=== PATIENT | female | born 1940 | race Caucasian/White ===

== ENCOUNTER → 2018-03-23 08:54 | Outpatient (CLI) | payer MEDICARE, OTHER, SELFPAY ==
--- NOTE | 2018-03-23 | DI.RAD.S_ITS ---
PROCEDURE: FL BARIUM SWALLOW W SPEECH INDICATIONS: DYSPHAGIA TECHNIQUE: Examination was conducted in conjunction with speech pathology per standard protocol. In the lateral projection, filming was performed of the patient swallowing. AP projection filming may also be performed with patient swallowing. COMPARISON: None. FINDINGS: Cervical disc degeneration is present. 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 Function: The oral preparatory phase appears normal, with proper containment. The subsequent oral propulsive phase, pharyngeal phase, and esophageal phase of swallowing also appear normal with all proffered substances. No laryngotracheal penetration or aspiration. No pathologic vallecular pooling. Morphology: No cricopharyngeal bar is identified. No cervical esophageal webs. No Zenker's diverticulum. No strictures. IMPRESSION: No aspiration. Dictated by: Merrill Bennett M.D. on 03/23/2018 at 11:35 Approved by: Merrill Bennett M.D. on 03/23/2018 at 11:36
--- NOTE | 2018-03-23 13:44 | ST.SWALLOW ---
Care Team Visit Care Team Role Provider Type Darrin Estevez MD Primary Care Provider Physician Specialty: Family Practice Address: [address], [place], [address] Email: Mychal Ku MD Attending Provider Physician Specialty: Ear, Nose, Throat Address: [address] [place] [address] [place], [address] Email: Modified Barium Swallow Study [facility] Modified Barium Swallow Study Start: 03/23/18 12:18 Freq: Status: Active Protocol: Document 03/23/18 13:33 MRM (Rec: 03/23/18 13:43 MRM [id number]) Modified Barium Swallow Study Total Time Visit Start Time 09:30 Visit Stop Time 10:00 Total Visit Minutes [address] Ku Reason for Referral Cough, globus sensation Setting Setting Outpatient Care Patient Information Identification Type Name Other Patient History Patient is a 77-year-old female referred by Dr Ku for an outpatient MBS secondary to cough and globus sensation. She has no recent history of neurological change , pneumonia or reduced appetite. She is able to eat and drink without restriction, but she did state that she has occasional difficulty swallowing bread and drinking consecutive sips of water. She stated that she has had these symptoms for years and was unable to recall the onset of symptoms. She reported that 30 years ago, she had a growth on her thyroid removed, which was benign. No other laryngeal /pharyngeal impairment to report. No history of speech therapy. No swallow study completed in the past. Subjective Observations Patient arrived on time for her MBS today with no family present. Able to ambulate independently and stand for AP view without difficulty. Patient Positioning Position View Lat-A/P Imaging Lateral View Textures Administered Trials Presented Thin Liquid via Cup Dysphagia Blenderized Textures Dysphagia Advanced Textures Regular Textures Oral Phase Source: MBSIMP (TM) (C) Bolus Specific Scoring Grid Lip Closure No Impairment (WNL) Tongue Control During Bolus Hold No Impairment (WNL) Bolus Prep/Mastication No Impairment (WNL) Bolus Transport/Lingual Motion No Impairment (WNL) A/P Lingual Propulsion Delay No Oral Residue No Impairment (WNL) Residue Clearing No Impairment (WNL) Nasal Regurgitation No Additional Oral Phase Observations No oral impairment Pharyngeal Phase Source: MBSIMP (TM) (C) Bolus Specific Scoring Grid Delayed Initiation of Pharyngeal Swallow No Soft Palate Elevation No Impairment (WNL) Tongue Base Strength/Range of Motion No Impairment (WNL) Residue Along the Tongue Base Yes: Trace amount; cleared with double swallow Clearance of Residue Along Tongue Base WFL Laryngeal Elevation No Impairment (WNL) Anterior Hyoid Movement No Impairment (WNL) Epiglottic Range of Motion No Impairment (WNL) Vallecular Residue Yes: Trace amount; cleared with double swallow Clearance of Vallecular Residue WFL Laryngeal Vestibular Closure No Impairment (WNL) Pharyngeal Stripping Wave WFL Pharyngeal Contraction WFL Posterior Pharyngeal Wall Residue No Clearance of Posterior Pharyngeal Wall WFL Residue Upper Esophageal Sphincter Opening WFL Residue in the Pyriform Sinuses Yes: Trace amount; cleared with double swallow Esophageal Clearance Upright Position No Impairment (WNL) Pharyngoesophageal Backflow Observed No Additional Pharyngeal Phase Observations No pharyngeal dysphagia. Radiologist noted presence of degenerative disk disease with subsequent osteopytes. Please see his report for details. Pharyngeal phase normal. A/P View Textures Administered Trials Presented Thin Liquid via Cup A/P View Observations Pharyngeal Contraction No Impairment (WNL) Vocal Fold Function Good Esophageal Function No Impairment (WNL) Esophageal Clearance Upright Position No Impairment (WNL) Additional Observations No impairment observed in AP view Esophageal Observations Esophageal Function No significant esophageal findings. Please see Radiologist's report for more detials. Clinical Impressions Dysphagia Type No dysphagia Findings Patient presents with a functional swallow. No oropharyngeal impairment. No penetration or aspiration observed. Patient able to tolerate thin liquids, puree textures, soft fruit and a jamin cracker without difficulty. No significant residue observed after any textures. RECOMMEND: No diet change recommended at this time. Discussed GERD precautions and recommended initiation of GERD diet to reduce acidity. However, patient able to tolerate single and consecutive sips of thin liquids without penetration or aspiration. No residue observed. Able to also tolerate regular textures without difficulty. Recommend alternate liquids/solids, hydrate frequently, avoid late night eating, slow rate of intake, sit upright during meals, sleep with elevation from waist. Recommend GI consult for further assessment of GERD. At this time, no further [facility] services warranted. Please reconsult if patient experiences worsening symptoms . Rehabilitation Potential Excellent Patient Appropriate for Therapy No Recommendations Diet Liquids Order Thin Diet Order Regular Medication Recommendation As Tolerated Aspiration Precautions Recommended Precautions Upright at 90 Degrees Alternate Liquids/Solids Frequent Rest Periods Small Bites/Sips Double Swallow Treatment Plan Recommended Referrals GI Consult Placement Recommendation After Discharge Home P[facility] Oral Motor Exam Start: 03/23/18 12:18 Freq: Status: Active Protocol: Document 03/23/18 13:33 MRM (Rec: 03/23/18 13:43 MRM [id number]) Oral Motor Examination Face Facial Symmetry Symmetrical Facial Movement Controlled Mouth Pucker Lips Normal Smile Normal Puff Cheeks Normal Tongue Size Normal Tongue Movement Protrusion/Retraction Strength WNL Protrusion/Retraction Range of Movement Normal Protrusion/Retraction Coordination WNL Elevation/Depression Strength WNL Elevation/Despression Range of Movement Normal Elevation/Depression Coordination WNL Lateralization Strength WNL Lateralization Range of Movement Normal Lateralization Coordination WNL Palate Soft Palate Description Normal Hard Palate Description Normal Gag Reflex Response Normal Velopharyngeal Movement Normal Hyolaryngeal Movement Hyolaryngeal Movement Normal Elevation Normal Excursion Volitional Cough/Swallow Comments Productive
== END ==
PROVIDERS: PCP Family Medicine; Visit Provider Otolaryngology
DX: R13.10 Dysphagia, unspecified (principal)
CPT/HCPCS: 74230; 92611

== ENCOUNTER → 2020-07-09 12:42 | Outpatient (CLI) | payer MEDICARE, OTHER, SELFPAY ==
--- NOTE | 2020-07-09 12:47 | DI.RAD.S_ITS ---
PROCEDURE: XR SHOULDER LT MIN 2V INDICATIONS: LEFT SHOULDER PAIN TECHNIQUE: 3 views of the shoulder were acquired. COMPARISON: None. FINDINGS: Bones: Impacted and slightly comminuted fracture involving surgical neck of left proximal humerus is seen with superior and lateral migration of proximal humeral shaft in relation to humeral head. No suspicious bony lesions. 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 Visualized ribs appear intact. Soft tissues: No suspicious soft tissue calcifications. IMPRESSION: Comminuted and impacted proximal humeral shaft/surgical neck fracture as above. Dictated by: Salomón Capone M.D. on 07/09/2020 at 14:15 Approved by: Salomón Capone M.D. on 07/09/2020 at 14:17
== END ==
PROVIDERS: PCP Family Medicine; Referring Provider Family Medicine; Visit Provider Family Medicine
DX: S42.212A Unspecified displaced fracture of surgical neck of left humerus, initial encounter for closed fracture (principal); S40.022A Contusion of left upper arm, initial encounter
CPT/HCPCS: 73030

== ENCOUNTER → 2024-10-23 09:04 | Outpatient (CLI) | payer MEDICARE, OTHER, SELFPAY ==
--- NOTE | 2024-10-23 09:08 | DI.RAD.S_ITS ---
PROCEDURE: XR THORACIC SPINE 2V INDICATIONS: Pain in thoracic spine TECHNIQUE: Two views of the thoracic spine were acquired. COMPARISON: None. FINDINGS: Thoracic spine curvature and alignment: Mild dextroscoliosis appreciated.. Bones: Minimal chronic wedging all thoracic vertebral bodies appreciated Disc spaces: Severe degenerative disc disease is seen throughout each thoracic level. Soft tissues: No soft tissue swelling, calcification or mass. IMPRESSION: Severe degeneration. Minimal chronic wedging all thoracic vertebral bodies may represent chronic Scheuermann's disease related disc degeneration and/or osteoporosis. Consider DEXA scanning if not recently performed Dictated by: Ray Hamilton M.D. on 10/25/2024 at 12:06 Approved by: Ray Hamilton M.D. on 10/25/2024 at 12:08
== END ==
PROVIDERS: PCP Family Medicine; Referring Provider Family Medicine; Visit Provider Family Medicine
DX: M51.34 Other intervertebral disc degeneration, thoracic region (principal); M41.9 Scoliosis, unspecified
CPT/HCPCS: 72070